=== PATIENT | female | born 1965 | race Two or more races ===

== ENCOUNTER → 2024-05-11 | Outpatient (CLI) | payer MEDICAID, SELFPAY ==
--- NOTE | 2024-05-11 10:36 | XR_ITS ---
Examination: Abdomen sonogram, complete Date and time of exam: May 11, 2024 1056 hours INDICATIONS: Left upper abdominal pain beginning one month ago. Technique: Multiple real-time grayscale transabdominal sonographic images of the abdomen have been obtained. Findings: Absent gallbladder Normal common bile duct 0.5 cm Pancreatic head 2.5 cm Aorta not enlarged Liver 14.7 cm fatty infiltration smooth contour no focal liver lesions Normal hepatopedal portal venous flow Patent IVC Right kidney 11.1 x 4.7 x 5.4 cm cortex 1.5 cm Left kidney 10.7 x 5.1 x 4.6 cm renal cortex 1.5 cm Mild bilateral renal parenchymal scar formation Spleen 9.1 cm IMPRESSION: Absent gallbladder Normal common bile duct Fatty liver
== END | disposition home or self-care (01) ==
PROVIDERS: PCP Nurse Practitioner Family; Referring Provider Nurse Practitioner Family; Visit Provider Nurse Practitioner Family
DX: K76.0 Fatty (change of) liver, not elsewhere classified (principal); Z90.49 Acquired absence of other specified parts of digestive tract
CPT/HCPCS: 76700

== ENCOUNTER → 2024-07-09 | Outpatient (CLI) | payer MEDICAID, SELFPAY ==
--- NOTE | 2024-07-09 11:00 | XR_ITS ---
Examination: Retroperitoneal ultrasound, complete Technique: Multiple high resolution grayscale images of the retroperitoneum obtained, including kidneys and bladder. Exam date and time:July 09, 2024 1140 hours INDICATIONS: Hematuria episodes beginning one month ago. FINDINGS: Right kidney 11.6 x 5.5 x 6.2 cm renal cortex 1.3 cm Left kidney 9.9 x 5.4 x 5.6 cm renal cortex 1.4 cm Mild renal 0.0 scar formation No hydronephrosis or renal calculi No bladder mass or bladder calculi Bladder prevoid volume 434 cc postvoid 1 32 cc IMPRESSION: Mild bilateral renal parenchymal scar formation
== END | disposition home or self-care (01) ==
LOC: CDIM 11:15
PROVIDERS: PCP Nurse Practitioner Family; Referring Provider Nurse Practitioner Family; Visit Provider Nurse Practitioner Family
DX: N28.89 Other specified disorders of kidney and ureter (principal)
CPT/HCPCS: 76770

== ENCOUNTER → 2024-11-03 | Outpatient (CLI) | payer MEDICAID, SELFPAY ==
--- NOTE | 2024-11-03 | XR_ITS ---
Examination: CT abdomen without intravenous contrast. Coronal 2-D reconstructions. Sagittal 2-D reconstructions. Date and time of exam:November 03, 2024 1333 hours Comparison June 17, 2022 INDICATIONS: Left upper abdomen lung swelling 3 months, history lateral abdominal wall hernia defect CTDI: vol (mGy): 10.8 DLP: (mGycm): 355 Technique: Axial images of the abdomen have been obtained, 3 mm slice thickness, without intravenous contrast 2-D sagittal coronal reconstructions Low dose protocols were performed. One or more of the following dose reduction techniques were used; automated exposure control, adjustment of the mA and/or KV according to patient size, use of iterative reconstruction technique. Findings: Liver irregular in contour with fatty infiltration Absent gallbladder Spleen not enlarged No pancreatic or adrenal mass Right renal calculi, the largest 2 mm No hydronephrosis or ureteral calculi Colonic diverticulosis The hernia defect June 17, 2022 right lateral abdomen has been repaired, no current hernia defect Moderate osteopenia IMPRESSION: Primary hepatocellular disease Nonobstructing right renal calculi The right lateral abdomen wall hernia defect has been repaired
== END | disposition home or self-care (01) ==
LOC: CCTX 10:59
PROVIDERS: PCP Nurse Practitioner Family; Referring Provider Nurse Practitioner Family; Visit Provider Nurse Practitioner Family
DX: K76.0 Fatty (change of) liver, not elsewhere classified (principal); N20.0 Calculus of kidney; K57.30 Diverticulosis of large intestine without perforation or abscess without bleeding
CPT/HCPCS: 74150; Q9963